=== PATIENT | male | born 1965 | race Caucasian/White ===

== ENCOUNTER 2016-11-29 07:20 | Day surgery (SDC) | payer OTHER ==
[2016-10-28 09:44] VITALS: BMI 29.5
[2016-11-29] MEDS ORDERED: Sodium Chloride 0.9% 0 ML IV ONE (08:14)
[2016-11-29] MEDS ORDERED: Bacitracin Ointment 30 GM TUBE ONE (08:15)
[2016-11-29] MEDS ORDERED: Lactated Ringer's 1,000 ML IV ONE ×2 (09:23)
[2016-11-29] MEDS: Iohexol 240 (50 ml) ONE ×2 (09:24→09:55)
[2016-11-29] MEDS: MethylPREDNISolone Depo 40 mg/ml Inj ONE ×2 (09:24→09:55)
[2016-11-29] MEDS ORDERED: Midazolam 2 MG/2 ML VIAL ONE (09:43)
[2016-11-29] MEDS ORDERED: Propofol 10 mg/ml Inj (20 ML) ONE (09:43)
[2016-11-29] MEDS ORDERED: HYDROmorphone 0.5 mg/0.5 ml ISec IVP PRN (10:04)
[2016-11-29 11:27] VITALS: RESP 18; O2SAT 100
[2016-11-29 14:29] VITALS: BP 142/84; PULSE 84; TEMP 98
--- NOTE | 2016-11-29 15:21 | RAD ---
PROCEDURE: Intraoperative Fluoroscopy. HISTORY: LUMBAR STENOSIS FINDINGS: Fluoroscopic assistance was provided for right sided L5-S1 epidural steroid injection. Please refer to the operative report from
--- NOTE | 2016-11-29 19:59 | OP ---
PROCEDURE DATE: 11/29/2016 PREOPERATIVE DIAGNOSIS: Spinal stenosis. POSTOPERATIVE DIAGNOSIS: Spinal stenosis. OPERATION: Epidurogram of the lumbar spine. DESCRIPTION OF PROCEDURE: After the patient was positioned prone on the operating table with his back sterilely prepped and draped and needle placement was felt to be the epidural space, an epidurogram of the lumbar spine was performed. A 1.5 mL of Omnipaque contrast was slowly injected through the needle and fluid freely without resistance, as visualized intraoperative in the fluoroscopy monitors noted the outlining epidural space. Having verified location of needle, we then proceeded with administration of the patient's epidural injection. Brent Baez MD
--- NOTE | 2016-11-29 23:56 | OP ---
PROCEDURE DATE: 11/29/2016 PREOPERATIVE DIAGNOSIS: Spinal stenosis. POSTOPERATIVE DIAGNOSIS: Spinal stenosis. OPERATION: Right L5-S1 lumbar epidural steroid injection. SURGEON: Brent Baez MD TYPE OF ANESTHESIA: IV sedation and local. DESCRIPTION OF PROCEDURE: The patient was brought to the operating room and placed on the operating table in the prone position. Intravenous sedation was administered by anesthesia and his back was sterilely prepped and draped. The site for needle insertion was located under fluoroscopy and infiltrated lidocaine with epinephrine. A 20-gauge Tuohy needle was inserted down to the level of superior lamina of S1 and slowly advanced cephalad so as to go through the ligamentum. At that time, there was loss of resistance, we detached the syringe, but no fluid on draw back. In order to confirm location of needle, an epidurogram of lumbar spine was performed, this will be dictated separately. After the completion of the epidurogram, the patient received his epidural injection. A mixture of 80 mg of Depo-Medrone and normal saline was slowly injected into the epidural space and fluid freely without resistance. After the needle was withdrawn, a bacitracin bandage dressing was applied. The patient was gently transferred back on to a stretcher in the supine position. He was taken to the recovery room in stable condition having tolerated the procedure well. Brent Baez MD
== END 2016-11-29 13:00 | disposition home or self-care (01) ==
LOC: C.SDS 07:20
PROVIDERS: ATTEND Orthopaedic Surgery Orthopaedic Surgery of the Spine
DX: M51.27 Other intervertebral disc displacement, lumbosacral region (principal); M51.06 Intervertebral disc disorders with myelopathy, lumbar region; M47.819 Spondylosis without myelopathy or radiculopathy, site unspecified; M54.16 Radiculopathy, lumbar region
CPT/HCPCS: 62322; 72275; J1030; J2250; J2704; J3010; J7120; Q9966

== ENCOUNTER 2017-08-30 06:07 | Day surgery (SDC) | payer OTHER ==
[2016-12-09 11:47] VITALS: BMI 29.2
[2017-08-30] MEDS ORDERED: Sodium Chloride 0.9% Inj (20mL) IV ONE (07:26)
[2017-08-30 07:38] VITALS: TEMP 97.6
[2017-08-30] MEDS ORDERED: Iodixanol 320 MG/ML 200 ML BOTTLE IV ONE (07:59)
[2017-08-30] MEDS ORDERED: Propofol 10 mg/ml Inj (20 ML) ONE (08:04)
[2017-08-30] MEDS ORDERED: Lidocaine Hydrochloride 5 ML INJ ONE (08:12)
[2017-08-30] MEDS: Iohexol 240 (50 ml) ONE ×2 (08:12→08:15)
[2017-08-30] MEDS: MethylPREDNISolone Depo 40 mg/ml Inj ONE ×2 (08:13→08:15)
[2017-08-30] MEDS: Bacitracin 500 Units/gm Oint Foilpak UD ONE ×2 (08:13→08:19)
--- NOTE | 2017-08-30 08:42 | PCM.OP ---
Operative Report - Operative Report Date of Surgery/Procedure: 08/30/17 Time of Surgery/Procedure: 08:15 Surgeon: Nestor Anesthesia/Sedation: general Pre-Operative Diagnosis: spinal stenosis Post-Operative Diagnosis: same Indication for Surgery: Pain Operative Findings: needle in epidural space Procedure/Operation Description: L5-S1 LESI. Lumbar epiduralgram Estimated Blood Loss: 0 Complications: none Discharge & Condition: stable
[2017-08-30 09:09] VITALS: BP 111/69; PULSE 65; RESP 15; O2SAT 99
--- NOTE | 2017-08-30 10:20 | RAD ---
PROCEDURE: Intraoperative Fluoroscopy. HISTORY: LUMBAR STENOSIS/RADICULOPATHY FINDINGS: Fluoroscopic assistance was provided. Fluoroscopy time = 13.6 seconds. Radiation dose = 2.23 mGy. Please refer to the operative report for additional procedural details.
--- NOTE | 2017-08-31 06:33 | OP ---
PROCEDURE DATE: 08/30/2017 PREOPERATIVE DIAGNOSIS: Spinal stenosis with right lumbar radiculopathy. POSTOPERATIVE DIAGNOSIS: Spinal stenosis with right lumbar radiculopathy. OPERATION: Right L5-S1 lumbar epidural steroid injection. SURGEON: Brent Baez MD ANESTHESIA: General with IV. DESCRIPTION OF PROCEDURE: The patient was brought to the operating room and placed on the operating table in the prone position. General anesthesia was achieved intravenously. The patient's back was sterilely prepped and draped. 1% lidocaine was used to infiltrate the site for the needle insertion. It was located under fluoroscopy. A 20-gauge Tuohy needle was inserted down the level of the superior lamina of S1 and slowly advanced cephalad so as to go through the ligamentum. At that time, there was a loss of resistance. We detached the syringe but no fluid on drawback. In order to verify the location of the needle, an epidurogram of the lumbar spine was performed, and this will be dictated separately. After the completion of the epidurogram, the patient received his epidural injection. A mixture of 80 mg of Depo-Medrol and normal saline was slowly injected into the epidural space, and it flowed freely without resistance. The needle was then withdrawn, and the Bacitracin Band-Aid dressing applied. The patient was gently transferred back onto a stretcher. He was awake and moving all extremities. He was taken back to the same-day surgery in stable condition having tolerated the procedure well. Brent Baez MD
--- NOTE | 2017-08-31 06:34 | OP ---
PROCEDURE DATE: 08/30/2017 PREOPERATIVE DIAGNOSIS: Spinal stenosis with right lumbar radiculopathy. POSTOPERATIVE DIAGNOSIS: Spinal stenosis with right lumbar radiculopathy. OPERATION: Epidurogram of the lumbar spine. DESCRIPTION OF PROCEDURE: After the patient was positioned prone on the operating table with his back sterilely prepped and draped and a Tuohy needle placed and was felt to be the epidural space on the right side at L5-S1, a lumbar epidurogram was performed. 1.5 mL of Omnipaque-240 contrast was slowly injected through the needle and it flowed freely without resistance. As visualized intraoperative on fluoroscopic monitor, it was noted to outline epidural space with some swelling of the exiting root canals. Having confirmed the location of the needle, we then proceeded with administration of the patient's epidural injection. Brent Baez MD
== END 2017-08-30 10:10 | disposition home or self-care (01) ==
LOC: C.SDS 06:07
PROVIDERS: ATTEND Orthopaedic Surgery Orthopaedic Surgery of the Spine
DX: M48.061 Spinal stenosis, lumbar region without neurogenic claudication (principal); M54.16 Radiculopathy, lumbar region
CPT/HCPCS: 62323; J1030; J2704; Q9966

== ENCOUNTER 2017-12-02 06:37 | Day surgery (SDC) | payer OTHER, SELFPAY ==
[2016-12-09 11:47] VITALS: BMI 29.2
[2017-12-02] MEDS ORDERED: Lactated Ringer's 500 ML IV ONE (09:00)
[2017-12-02] MEDS ORDERED: Propofol 10 mg/ml Inj (20 ML) ONE (09:02)
[2017-12-02] MEDS ORDERED: Simethicone 40 mg/0.6 ml Liquid (30 ml) ONE (09:08)
[2017-12-02] MEDS ORDERED: Lactated Ringer's 500 ML IV SCH (09:15)
[2017-12-02 09:45] VITALS: TEMP 97.5; O2SAT 100
[2017-12-02 09:48] VITALS: RESP 18
[2017-12-02 10:22] VITALS: BP 126/71; PULSE 65
== END 2017-12-02 10:30 | disposition home or self-care (01) ==
LOC: C.ENDO 06:37
PROVIDERS: ATTEND Internal Medicine Gastroenterology
DX: Z12.11 Encounter for screening for malignant neoplasm of colon (principal); K57.30 Diverticulosis of large intestine without perforation or abscess without bleeding; K64.8 Other hemorrhoids
CPT/HCPCS: 45378; J2704; J7120